=== PATIENT | female | born 1985 | race Asian ===

== ENCOUNTER 2016-04-02 12:19 | Inpatient (IN) | payer MEDICAID, MEDICARE, OTHER ==
[~2016-04-02] VITALS: Ht 165.1 cm; Wt 71.2 kg
[2016-04-02] MEDS ORDERED: HALOPERIDOL LACTATE 5 MG/ML VIAL IM ONE (13:45)
[2016-04-02] MEDS ORDERED: LORazepam 2 MG/ML VIAL IM ONE (13:45)
[2016-04-02] MEDS ORDERED: DiphenhydrAMINE HCL 50 MG/ML VIAL IM ONE (13:45)
[2016-04-02 14:04] LABS: BASOPHILS % (AUTO) 0.2 % (0.0-2.0); EOSINOPHILS % (AUTO) 0.2 % (1.0-6.0); HEMATOCRIT 43.1 % (36-46); HEMOGLOBIN 14.2 g/dL (12.0-16.0); LYMPHOCYTES # (AUTO) 1.6 K/uL (1.0-4.8); LYMPHOCYTES % (AUTO) 10.4 % (22.0-44.0); MEAN CORPUSCULAR HEMOGLOBIN 30.4 pg (26.0-34.0); MEAN CORPUSCULAR HGB CONC 32.9 G/dL (31.0-37.0); MEAN CORPUSCULAR VOLUME 92 fL (80-100); MONOCYTES # (AUTO) 0.8 K/uL (0.1-1.0); NEUTROPHILS # (AUTO) 13.1 K/uL (1.8-7.7); NEUTROPHILS % (AUTO) 84.2 % (40.0-70.0); PLATELET COUNT (AUTO) 542 K/uL (150-450); RED BLOOD CELL COUNT(AUTO) 4.67 MIL/uL (4.00-5.20); RED CELL DISTRIBUTION WIDTH 13.1 % (11.5-14.5); WHITE BLOOD COUNT (AUTO) 15.6 K/uL (4.5-11.0)
[2016-04-02 14:15] LABS: ANION GAP 11 mmol/L (8-16); CALCIUM, TOTAL 9.3 mg/dL (8.8-10.5); CARBON DIOXIDE 27 mmol/L (22-29); CHLORIDE 104 mmol/L (98-107); CREATININE 0.87 mg/dL (0.60-1.30); GLOMERULAR FILTR. RATE CALC > 60 mL/min (>60); POTASSIUM 4.7 mmol/L (3.5-5.1); SODIUM SERUM 142 mmol/L (136-145); UREA NITROGEN, BLOOD 11 mg/dL (7-18)
[2016-04-02 14:21] LABS: ALANINE AMINOTRANSFERASE 102 U/L (12-78); ALBUMIN 4.2 g/dL (3.4-5.0); ASPARTATE AMINOTRANSFERASE 42 U/L (15-37); BILIRUBIN,TOTAL 0.8 mg/dL (0.1-1.0); TOTAL PROTEIN, SERUM 7.8 g/dL (6.4-8.2)
[2016-04-02] MEDS ORDERED: LORazepam 2 MG TABLET PO PRN (15:45)
[2016-04-02] MEDS ORDERED: ZOLPIDEM TARTRATE 10 MG TABLET PO PRN (15:45)
[2016-04-02] MEDS ORDERED: HALOPERIDOL 5 MG TABLET PO PRN (15:45)
[2016-04-03 12:52] VITALS: BP 148/63
[2016-04-03] MEDS ORDERED: INFLUENZA VIRUS VACCINE QVS 2016-17 (3YR+)/PF 60 MCG/0.5 ML SYRINGE IM ONE (13:30)
[2016-04-03 16:10] VITALS: BP 121/76
[2016-04-04] MEDS ORDERED: BACITRACIN 28.4 GM OINTMENT TP PRN (11:15)
[2016-04-04] MEDS ORDERED: ACETAMINOPHEN 325 MG TABLET PO PRN (11:15)
[2016-04-04] MEDS ORDERED: PETROLATUM,WHITE 71 GM JELLY TP PRN (11:15)
[2016-04-04] MEDS ORDERED: ONDANSETRON HCL 4 MG TABLET PO PRN (11:15)
[2016-04-04] MEDS ORDERED: MAG HYDROX/AL HYDROX/SIMETH ES 30 ML SUSPENSION UDCUP PO PRN (11:15)
[2016-04-04] MEDS ORDERED: CloNIDine HCL 0.1 MG TABLET PO PRN (11:15)
[2016-04-04] MEDS ORDERED: LOPERAMIDE HCL 2 MG CAPSULE PO PRN (11:15)
[2016-04-04] MEDS ORDERED: BENZOCAINE/MENTHOL LOZENGE MM PRN (11:15)
[2016-04-04] MEDS ORDERED: MAGNESIUM HYDROXIDE SUSPENSION 30 ML UDCUP PO PRN (11:15)
[2016-04-04] MEDS ORDERED: ALBUTEROL SULFATE HFA 90 MCG/PUFF 8 GM INHALER IH PRN (11:15)
[2016-04-06 08:08] VITALS: BP 130/76
[2016-04-06] MEDS: RisperiDONE 0.5 MG TABLET PO SCH ×2 (08:31→21:00)
[2016-04-07] MEDS: RisperiDONE 0.5 MG TABLET PO SCH ×2 (09:00→21:00)
[2016-04-08] MEDS: RisperiDONE 0.5 MG TABLET PO SCH ×2 (09:00→21:00)
[2016-04-09] MEDS: RisperiDONE 0.5 MG TABLET PO SCH ×2 (09:00→20:42)
[2016-04-10] MEDS: RisperiDONE 0.5 MG TABLET PO SCH ×2 (09:00→21:00)
[2016-04-10 16:00] VITALS: BP 126/82
[2016-04-11] MEDS: RisperiDONE 0.5 MG TABLET PO SCH ×2 (08:54→21:00)
[2016-04-11] MEDS ORDERED: HALOPERIDOL LACTATE 5 MG/ML VIAL IM PRN (13:45)
[2016-04-12 08:11] LABS: BASOPHILS % (AUTO) 0.4 % (0.0-2.0); EOSINOPHILS % (AUTO) 1.5 % (1.0-6.0); HEMOGLOBIN 14.4 g/dL (12.0-16.0); LYMPHOCYTES # (AUTO) 2.2 K/uL (1.0-4.8); LYMPHOCYTES % (AUTO) 33.6 % (22.0-44.0); MEAN CORPUSCULAR HEMOGLOBIN 31.7 pg (26.0-34.0); MEAN CORPUSCULAR HGB CONC 34.3 G/dL (31.0-37.0); MEAN CORPUSCULAR VOLUME 92 fL (80-100); MONOCYTES # (AUTO) 0.3 K/uL (0.1-1.0); MONOCYTES % (AUTO) 5.4 % (2.0-9.0); NEUTROPHILS # (AUTO) 3.8 K/uL (1.8-7.7); NEUTROPHILS % (AUTO) 59.1 % (40.0-70.0); PLATELET COUNT (AUTO) 279 K/uL (150-450); RED BLOOD CELL COUNT(AUTO) 4.55 MIL/uL (4.00-5.20); WHITE BLOOD COUNT (AUTO) 6.5 K/uL (4.5-11.0)
[2016-04-12] MEDS: RisperiDONE 0.5 MG TABLET PO SCH (08:42)
[2016-04-12 08:50] LABS: CHOL/HDL RATIO 2.8 (3.9-5.7); THYROID STIMULATING HORMONE 1.44 uIU/mL (0.36-3.74)
[2016-04-12 16:12] VITALS: BP 128/80
[2016-04-12] MEDS: ARIPiprazole 10 MG TABLET PO SCH (20:09)
[2016-04-12] MEDS: LamoTRIgine 25 MG TABLET PO SCH (20:09)
[2016-04-13 06:20] LABS: HEPATITIS Bs ANTIGEN SCREEN P Negative (Negative); HEPATITIS C AB SCREEN <0.1 s/co ratio (0.0-0.9)
[2016-04-13 06:54] VITALS: BP 157/91
[2016-04-13 16:08] VITALS: BP 120/70
[2016-04-13] MEDS: ARIPiprazole 10 MG TABLET PO SCH (20:03)
[2016-04-13] MEDS: LamoTRIgine 25 MG TABLET PO SCH (20:04)
[2016-04-14 08:19] VITALS: BP 128/82
[2016-04-14 16:11] VITALS: BP 131/71
[2016-04-14] MEDS: LamoTRIgine 25 MG TABLET PO SCH (20:04)
[2016-04-14] MEDS: ARIPiprazole 10 MG TABLET PO SCH (20:04)
[2016-04-15 06:45] VITALS: BP 133/81
[2016-04-15 08:07] VITALS: BP 124/81
[2016-04-15 17:35] VITALS: BP 128/75
[2016-04-15] MEDS: LamoTRIgine 25 MG TABLET PO SCH (20:52)
[2016-04-15] MEDS: ARIPiprazole 10 MG TABLET PO SCH (20:52)
[2016-04-16 07:21] VITALS: BP 135/72
[2016-04-16 08:09] VITALS: BP 133/92
[2016-04-16] MEDS: LamoTRIgine 25 MG TABLET PO SCH (20:24)
[2016-04-16] MEDS: ARIPiprazole 10 MG TABLET PO SCH (20:24)
[2016-04-17 07:11] VITALS: BP 124/78
[2016-04-17 08:09] VITALS: BP 135/89
[2016-04-17 16:09] VITALS: BP 135/89
[2016-04-17] MEDS: LamoTRIgine 25 MG TABLET PO SCH (20:09)
[2016-04-17] MEDS: ARIPiprazole 10 MG TABLET PO SCH (20:09)
[2016-04-18] MEDS: ARIPiprazole 10 MG TABLET PO SCH (20:06)
[2016-04-18] MEDS: LamoTRIgine 25 MG TABLET PO SCH (20:06)
[2016-04-19] MEDS ORDERED: LAMO25 PO (12:37)
[2016-04-19] MEDS ORDERED: ARIP15TA3 PO (12:37)
== END 2016-04-19 16:29 | disposition home or self-care (01) | DRG 750 ==
LOC: EMS 12:20 → B3A 04-03 11:01
DX: F25.0 Schizoaffective disorder, bipolar type (principal); F29 Unspecified psychosis not due to a substance or known physiological condition; R45.851 Suicidal ideations; F31.9 Bipolar disorder, unspecified; R74.0 Nonspecific elevation of levels of transaminase and lactic acid dehydrogenase [LDH]; D72.828 Other elevated white blood cell count; D47.3 Essential (hemorrhagic) thrombocythemia; Z98.890 Other specified postprocedural states; Z88.0 Allergy status to penicillin; Z88.8 Allergy status to other drugs, medicaments and biological substances; Z28.21 Immunization not carried out because of patient refusal
CPT/HCPCS: 80074; 82306; 84443; 90471; 96372; 99285; A0429; G0480; J1200; J1630; J2060

== ENCOUNTER 2021-03-09 15:54 | Inpatient (IN) | payer OTHER, MEDICAID ==
[~2021-03-09] VITALS: Ht 165.1 cm; Wt 84.9 kg
[~2021-03-09 15:54] MED LIST: ARIP15TA27 PO; LAMO25TA25 PO
[2021-03-09] MEDS ORDERED: DiphenhydrAMINE HCL 50 MG/ML VIAL ONE (16:56)
[2021-03-09] MEDS ORDERED: HALOPERIDOL LACTATE 5 MG/ML VIAL ONE (16:56)
[2021-03-09] MEDS ORDERED: LORazepam 2 MG/ML VIAL ONE (16:56)
[2021-03-09] MEDS ORDERED: DiphenhydrAMINE HCL 50 MG/ML VIAL IM ONE (17:00)
[2021-03-09] MEDS ORDERED: LORazepam 2 MG/ML VIAL IM ONE (17:00)
[2021-03-09] MEDS ORDERED: HALOPERIDOL LACTATE 5 MG/ML VIAL IM ONE (17:00)
[2021-03-09 17:40] LABS: AMPHET/METH SCREEN,URINE NEGATIVE (NEGATIVE); BARBITURATE SCREEN, URINE NEGATIVE (NEGATIVE); BENZODIAZEPINES SCREEN,URINE NEGATIVE (NEGATIVE); CANNABINOID SCREEN,URINE NEGATIVE (NEGATIVE); COCAINE SCREEN,URINE NEGATIVE (NEGATIVE); METHADONE SCREEN, URINE NEGATIVE (NEGATIVE); OPIATE SCREEN,URINE NEGATIVE (NEGATIVE); PHENCYCLIDINE SCREEN,URINE NEGATIVE (NEGATIVE)
[2021-03-09 17:56] LABS: BASOPHILS % (AUTO) 0.5 % (0.0-2.0); EOSINOPHILS % (AUTO) 0.8 % (1.0-6.0); HEMATOCRIT 38.1 % (36-46); HEMOGLOBIN 13.1 g/dL (12.0-16.0); LYMPHOCYTES # (AUTO) 1.8 K/uL (1.0-4.8); MEAN CORPUSCULAR HEMOGLOBIN 31.4 pg (26.0-34.0); MEAN CORPUSCULAR HGB CONC 34.5 G/dL (31.0-37.0); MEAN CORPUSCULAR VOLUME 91 fL (80-100); MONOCYTES # (AUTO) 0.3 K/uL (0.1-1.0); MONOCYTES % (AUTO) 4.4 % (2.0-9.0); NEUTROPHILS # (AUTO) 4.8 K/uL (1.8-7.7); NEUTROPHILS % (AUTO) 68.3 % (40.0-70.0); PLATELET COUNT (AUTO) 331 K/uL (150-450); RED BLOOD CELL COUNT(AUTO) 4.18 MIL/uL (4.00-5.20); RED CELL DISTRIBUTION WIDTH 13.2 % (11.5-14.5)
[2021-03-09 18:09] LABS: ANION GAP 7 mmol/L (8-16); CALCIUM, TOTAL 8.9 mg/dL (8.8-10.5); CARBON DIOXIDE 30 mmol/L (22-29); CHLORIDE 107 mmol/L (98-107); CREATININE 0.71 mg/dL (0.60-1.30); GLOMERULAR FILTR. RATE CALC > 60 mL/min (>60); GLUCOSE,RANDOM 102 mg/dL (70-110); POTASSIUM 3.2 mmol/L (3.5-5.1); SODIUM SERUM 144 mmol/L (136-145); UREA NITROGEN, BLOOD 7 mg/dL (7-18)
[2021-03-09 18:21] LABS: ALANINE AMINOTRANSFERASE 48 U/L (12-78); ALBUMIN 3.8 g/dL (3.4-5.0); ALKALINE PHOSPHATASE 61 U/L (46-116); ASPARTATE AMINOTRANSFERASE 20 U/L (15-37); BILIRUBIN,TOTAL 0.5 mg/dL (0.1-1.0); HCG,QUANTITATIVE < 1 mIU/mL (0-6); TOTAL PROTEIN, SERUM 7.1 g/dL (6.4-8.2)
[2021-03-09] MEDS ORDERED: LORazepam 2 MG TABLET PO PRN (18:30)
[2021-03-09] MEDS ORDERED: HALOPERIDOL 5 MG TABLET PO PRN (18:30)
[2021-03-09] MEDS ORDERED: ZOLPIDEM TARTRATE 10 MG TABLET PO PRN (18:30)
[2021-03-09 18:35] LABS: COVID AG,FIA SOURCE NASOPHARYNGEAL
[2021-03-10 00:59] VITALS: BP 134/78
[2021-03-10] MEDS ORDERED: INFLUENZA VIRUS VACCINE QVS 2021-22 (6MO+)/PF 60 MCG/0.5 ML SYRINGE IM. ONE (01:00)
[2021-03-10 08:05] LABS: CHOL/HDL RATIO 3.1 (3.9-5.7)
[2021-03-10] MEDS ORDERED: LORazepam 2 MG/ML VIAL ONE (08:32)
[2021-03-10] MEDS ORDERED: DiphenhydrAMINE HCL 50 MG/ML VIAL ONE (08:33)
[2021-03-10] MEDS ORDERED: HALOPERIDOL LACTATE 5 MG/ML VIAL ONE (08:33)
[2021-03-10 08:51] VITALS: BP 121/88
[2021-03-10] MEDS ORDERED: DiphenhydrAMINE HCL 50 MG/ML VIAL IM ONE (09:00)
[2021-03-10] MEDS ORDERED: LORazepam 2 MG/ML VIAL IM ONE (09:00)
[2021-03-10] MEDS ORDERED: HALOPERIDOL LACTATE 5 MG/ML VIAL IM ONE (09:00)
[2021-03-10] MEDS ORDERED: PETROLATUM,WHITE 28 GM JELLY TP PRN ×2 (09:45→11:15)
[2021-03-10] MEDS ORDERED: BACITRACIN 28 GM OINTMENT TP PRN (11:15)
[2021-03-10] MEDS ORDERED: OMEPRAZOLE 20 MG CAPSULE PO PRN (11:15)
[2021-03-10] MEDS ORDERED: MAGNESIUM HYDROXIDE SUSPENSION 30 ML UDCUP PO PRN (11:15)
[2021-03-10] MEDS ORDERED: MAG HYDROX/AL HYDROX/SIMETH ES 30 ML SUSPENSION UDCUP PO PRN (11:15)
[2021-03-10] MEDS ORDERED: ALBUTEROL SULFATE HFA 90 MCG/PUFF 8 GM INHALER IH PRN (11:15)
[2021-03-10] MEDS ORDERED: ACETAMINOPHEN 325 MG TABLET PO PRN (11:15)
[2021-03-10] MEDS ORDERED: LOPERAMIDE HCL 2 MG CAPSULE PO PRN (11:15)
[2021-03-10] MEDS ORDERED: BENZOCAINE/MENTHOL LOZENGE PO PRN (11:15)
[2021-03-10] MEDS ORDERED: DOCUSATE SODIUM 100 MG CAPSULE PO PRN (11:15)
[2021-03-10] MEDS ORDERED: CloNIDine HCL 0.1 MG TABLET PO PRN (11:15)
[2021-03-10] MEDS ORDERED: ONDANSETRON HCL 4 MG TABLET PO PRN (11:15)
[2021-03-10] MEDS ORDERED: IBUPROFEN 600 MG TABLET PO PRN (11:15)
[2021-03-10 16:13] VITALS: BP 118/72
[2021-03-10] MEDS: RisperiDONE 2 MG TABLET PO SCH (16:31)
[2021-03-10] MEDS ORDERED: POTASSIUM CHLORIDE 20 MEQ ER TABLET PO ONE (17:00)
[2021-03-11 00:05] VITALS: BP 122/74
[2021-03-11 08:22] VITALS: BP 125/78
[2021-03-11] MEDS: RisperiDONE 2 MG TABLET PO SCH (09:00)
[2021-03-11 16:19] VITALS: BP 136/88
[2021-03-11] MEDS: RisperiDONE 3 MG TABLET PO SCH (16:27)
[2021-03-11] MEDS ORDERED: DiphenhydrAMINE HCL 50 MG/ML VIAL ONE (18:07)
[2021-03-11] MEDS ORDERED: LORazepam 2 MG/ML VIAL ONE (18:07)
[2021-03-11] MEDS ORDERED: HALOPERIDOL LACTATE 5 MG/ML VIAL ONE (18:07)
[2021-03-11] MEDS ORDERED: LORazepam 2 MG/ML VIAL IM ONE (18:15)
[2021-03-11] MEDS ORDERED: HALOPERIDOL LACTATE 5 MG/ML VIAL IM ONE (18:15)
[2021-03-11] MEDS ORDERED: DiphenhydrAMINE HCL 50 MG/ML VIAL IM ONE (18:15)
[2021-03-12 06:48] VITALS: BP 139/86
[2021-03-12] MEDS: RisperiDONE 3 MG TABLET PO SCH ×2 (08:26→16:28)
[2021-03-12 08:53] VITALS: BP 107/55
[2021-03-12] MEDS ORDERED: DiphenhydrAMINE HCL 50 MG/ML VIAL ONE (16:00)
[2021-03-12] MEDS ORDERED: HALOPERIDOL LACTATE 5 MG/ML VIAL IM ONE (16:00)
[2021-03-12] MEDS ORDERED: DiphenhydrAMINE HCL 50 MG/ML VIAL IM ONE (16:00)
[2021-03-12] MEDS ORDERED: LORazepam 2 MG/ML VIAL IM ONE (16:00)
[2021-03-12] MEDS ORDERED: HALOPERIDOL LACTATE 5 MG/ML VIAL ONE (16:00)
[2021-03-12] MEDS ORDERED: LORazepam 2 MG/ML VIAL ONE (16:00)
[2021-03-12 17:24] VITALS: BP 122/85
[2021-03-13 05:16] VITALS: BP 113/77
[2021-03-13] MEDS: RisperiDONE 3 MG TABLET PO SCH ×2 (09:00→16:27)
[2021-03-14] MEDS ORDERED: PETROLATUM,WHITE 28 GM JELLY TP PRN (07:45)
[2021-03-14 08:23] VITALS: BP 109/66
[2021-03-14] MEDS: RisperiDONE 3 MG TABLET PO SCH ×2 (08:34→17:00)
[2021-03-14] MEDS ORDERED: LORazepam 2 MG/ML VIAL IM ONE (11:30)
[2021-03-14] MEDS ORDERED: HALOPERIDOL LACTATE 5 MG/ML VIAL IM ONE (11:30)
[2021-03-14] MEDS ORDERED: HALOPERIDOL LACTATE 5 MG/ML VIAL ONE (11:30)
[2021-03-14] MEDS ORDERED: DiphenhydrAMINE HCL 50 MG/ML VIAL IM ONE (11:30)
[2021-03-14] MEDS ORDERED: DiphenhydrAMINE HCL 50 MG/ML VIAL ONE (11:31)
[2021-03-14] MEDS ORDERED: LORazepam 2 MG/ML VIAL ONE (11:31)
[2021-03-14 16:28] VITALS: BP 121/76
[2021-03-15 01:15] VITALS: BP 118/70
[2021-03-15] MEDS: RisperiDONE 3 MG TABLET PO SCH ×2 (08:10→16:56)
[2021-03-15] MEDS: DIVALPROEX SODIUM 500 MG DR TABLET PO SCH ×2 (08:10→16:56)
[2021-03-15 16:23] VITALS: BP 123/79
[2021-03-16 00:24] VITALS: BP 118/71
[2021-03-16] MEDS: DIVALPROEX SODIUM 500 MG DR TABLET PO SCH ×2 (08:04→16:28)
[2021-03-16] MEDS: RisperiDONE 3 MG TABLET PO SCH ×2 (08:05→16:29)
[2021-03-17 00:50] VITALS: BP 112/75
[2021-03-17] MEDS: RisperiDONE 3 MG TABLET PO SCH ×2 (08:09→16:17)
[2021-03-17] MEDS: DIVALPROEX SODIUM 500 MG DR TABLET PO SCH ×2 (08:09→16:17)
[2021-03-18 07:22] LABS: COVID AG,FIA SOURCE NASOPHARYNGEAL
[2021-03-18] MEDS: DIVALPROEX SODIUM 500 MG DR TABLET PO SCH ×2 (08:16→17:00)
[2021-03-18] MEDS: RisperiDONE 3 MG TABLET PO SCH ×2 (08:16→17:00)
[2021-03-18 16:04] VITALS: BP 135/85
[2021-03-19 01:21] VITALS: BP 123/78
[2021-03-19 08:13] VITALS: BP 137/86
[2021-03-19] MEDS: DIVALPROEX SODIUM 500 MG DR TABLET PO SCH ×2 (08:20→16:44)
[2021-03-19] MEDS: RisperiDONE 3 MG TABLET PO SCH ×2 (08:21→16:44)
[2021-03-19 16:11] VITALS: BP 130/78
[2021-03-20 00:11] VITALS: BP 125/71
[2021-03-20] MEDS: RisperiDONE 3 MG TABLET PO SCH ×2 (08:12→17:00)
[2021-03-20] MEDS: DIVALPROEX SODIUM 500 MG DR TABLET PO SCH ×2 (08:12→17:00)
[2021-03-20 08:37] VITALS: BP 118/77
[2021-03-20 16:10] VITALS: BP 131/95
[2021-03-21 01:35] VITALS: BP 126/85
[2021-03-21] MEDS: RisperiDONE 3 MG TABLET PO SCH ×3 (08:36→17:31)
[2021-03-21] MEDS: DIVALPROEX SODIUM 500 MG DR TABLET PO SCH ×3 (08:36→17:31)
[2021-03-21 08:38] VITALS: BP 137/96
[2021-03-21 16:07] VITALS: BP 148/92
== END 2021-03-21 18:00 | disposition home or self-care (01) | DRG 885 ==
LOC: EMS 15:58 → B3A 19:58
PROVIDERS: ADMIT Psychiatry & Neurology Psychiatry; ATTEND Psychiatry & Neurology Psychiatry
DX: F25.9 Schizoaffective disorder, unspecified (principal); F31.9 Bipolar disorder, unspecified; E87.6 Hypokalemia; Z20.822 Contact with and (suspected) exposure to COVID-19; J45.909 Unspecified asthma, uncomplicated; K59.00 Constipation, unspecified; I10 Essential (primary) hypertension; G47.00 Insomnia, unspecified; F41.9 Anxiety disorder, unspecified; Z88.0 Allergy status to penicillin; Z91.14 Patient's other noncompliance with medication regimen
CPT/HCPCS: 80053; 80061; 84702; 85025; 99291; G0480; J1200; J1630; J2060